=== PATIENT | female | born 1960 | race Caucasian/White ===

== ENCOUNTER → 2023-05-23 | Outpatient (CLI) | payer SELFPAY, OTHER ==
--- NOTE | 2023-05-23 10:50 | US_ITS ---
STUDY: ULTRASOUND OF THE FEMALE PELVIS - LIMITED REASON FOR EXAM: Female, 62 years old UTERINE/VAG BLEED-occasional spotting -- POST MENOPAUSAL TECHNIQUE: Transabdominal TECHNICAL QUALITY: Adequate. COMPARISON: None. FINDINGS: The uterus is anteverted and is in a midline position. The uterus measures 6 x 5 x 2 cm. Normal uterine cervix. The endometrium measures 3-7.5 mm in thickness, and is endometrium is inhomogeneous. Particularly seen on the transverse view. There is a suggestion of a centrally located low attenuation which may represent fluid within the canal.. There is no demonstrated myometrial mass. The right ovary measures 2.6 x 2.5 x 2.6 cm. cm. There are at least 2 well-circumscribed cyst in the right ovary measuring 1.7 x 1.4 x 1.1 cm and 1.9 x 1.4 x 1.0 cm. There is no visualized torsion. There is no visualized right adnexal mass or complex lesion. There is normal arterial and normal venous vascularity. The left ovary measures 3.5 x 3.2 x 2.5 cm. There is a left ovarian cyst measuring 2.4 x 2.6 x 1.9 centimeters within the posterior through-transmission. There is no visualized left adnexal mass or complex lesion. There is normal arterial and normal venous vascularity. There is no fluid in the cul-de-sac. US/Pelvic (Non ) IMPRESSION: Postmenopausal patient with vaginal bleeding a 3 to 7.5 mm endometrial thickening with inhomogeneity and fluid distention is considered abnormal. Potentially there could be sclerosis or stenosis of the vaginal canal causing minor obstruction with fluid in the endometrial canal however further investigation is warranted to exclude atypia potentially endometrial hyperplasia. Bilateral ovarian cyst although simple in appearance somewhat atypical in number for patient age. Recommend consideration for short-term serial follow-up or as clinically appropriate. Electronically Signed: Trinity Suarez MD at 16:00 EDT ,
== END | disposition home or self-care (01) ==
PROVIDERS: PCP Nurse Practitioner Family; Referring Provider Urology; Visit Provider Urology
DX: N93.9 Abnormal uterine and vaginal bleeding, unspecified (principal)
CPT/HCPCS: 76856

== ENCOUNTER 2023-08-07 06:49 | Day surgery (SDC) | payer SELFPAY, OTHER ==
--- NOTE | 2023-08-07 | EMB_PTH ---
PATIENT: RAJESH DUARTE LOC: [facility] [place][id number] AGE/SX: 62/F ROOM: RE08/07/[address]: Dr. Kelley Farrar, : 1960 BED: DIS: 08/07/2023 SPEC #: [id number] RECD: 08/07/23 10:55 STATUS: CONCHIS RYAN #: [id number] JENIFER: 08/07/23 00:[address]: Kelley Farrar DEPT: SURGICAL PATHOLOGY RECD BY: Bartolo Meyer ENTERED: 08/07/23 10:55 SP TYPE: ENDOM BX/C CHANTELL DR: Afsaneh Andrews, COLLEGE B[employer]ET[employer]ALL COACH-C Tissues: A - Endometrium, NOS B - Endometrium, NOS Procedures: Surgery Specimen Level IV HEADER OPERATION: Hysteroscopy, D & C Symphion PRE-OP DIAGNOSIS: Abnormal uterine bleeding TISSUE SUBMITTED: A - Endometrial polyp, B - Endometrial curettings MICROSCOPIC DIAGNOSIS A. Endometrial polyp, biopsy: Fragments of simple cystic hyperplasia without atypia. Fragments of myometrium with no pathologic change. B. Endometrium, biopsy: Rare strips of benign superficial glandular mucosa. AM:mario 08/10/2023 MICROSCOPIC DESCRIPTION Slides are reviewed. GROSS DESCRIPTION A - Received in fixative is one container labeled with the patient's name and designated endometrial polyp. The specimen consists of multiple irregular fragments of light russell soft tissue that in aggregate measure 2.5 x 1.0 x 0.1 cm. The specimen is totally submitted in one cassette. B - Received in fixative is one container labeled with the patient's name and designated endometrial curettings. The specimen consists of multiple minute fragments of mucoid light russell tissue that in aggregate measure 1.0 x 0.2 x <0.1 cm. The specimen is totally submitted in one cassette. / AM:mario 08/07/2023 TC:5 CPT: 84951 x2
[2023-08-07 07:12] VITALS: BP 139/69; PULSE 76; RESP 18; TEMP 36.6; O2SAT 100; BMI 23.3
[2023-08-07] MEDS: Lactated Ringers 1,000 ML 15 ML IV (07:19)
[2023-08-07 07:31] LABS: Hematocrit 46.4 % (37-47); Hemoglobin 14.9 g/dL (12.0-15.0); Mean Corp Hgb Conc 32.1 g/dL (32-36); Mean Corpuscular Hgb 29.5 pg (27.0-32.0); Mean Corpuscular Volume 91.9 fL (81-99); Mean Platelet Vol. 9.3 fl (6.2-12.0); Platelet Count 282 K/mm3 (150-450); RBC Distribution Width SD 40.7 fl (35.1-43.9); Red Blood Count 5.05 M/mm3 (4.2-5.4); White Blood Count 5.9 K/mm3 (4.4-11.0)
[2023-08-07 08:16] LABS: Anion Gap 4 (5-15); BUN 13 mg/dL (7-18); BUN/Creat Ratio 19.3 RATIO (10-20); Calcium,Total 9.2 mg/dL (8.5-10.1); Chloride 107 mmol/L (98-107); Creatinine, Serum 0.67 mg/dL (0.55-1.02); EST Glomerular Filtration Rate 94 mL/min (>60); Est Glom Filt Rate - Afr Amer 114 mL/min (>60); Estimated Creatinine Clearance 68.86 ml/min; Glucose 91 mg/dL (74-106); Potassium 3.7 mmol/L (3.5-5.1); Sodium Level 140 mmol/L (136-145)
[2023-08-07] MEDS: Lidocaine 1%/Epi 1:200 (30ml) 30 ML AMPUL (09:05)
--- NOTE | 2023-08-07 09:24 | OP.PCM_ITS ---
Problems Associated Problem List Diagnoses (1) PMB (postmenopausal bleeding): (2) Endometrial polyp: Report of Operation Date of Procedure: 08/07/23 Pre-Operative Diagnosis: PMB, endometrial polyp Post-Operative Diagnosis: As above Surgery/Procedure Performed:: Hysteroscopy, polypectomy, D&C Description of Surgical Findings:: 1 polyp noted in left cornua of uterus. Otherwise normal appearing uterine cavity with bilateral tubal ostia visualized. Atrophic appearing endometrium. Descent of uterus and cervix to vaginal introitus. Surgeon: Kelley Farrar dog behaviorist: None Type of Anesthesia: MAC Special Medications: None Specimen's removed: Endometrial polyp and endometrial curettings Drains: None Estimated Blood Loss (mL): < 50 Fluids Replaced: 600 cc deficit Description of Procedure: Patient was taken to the operating room where MAC anesthesia was induced. She was prepped and draped in the dorsal lithotomy position using yellowfin stirr ups. Her pessary was removed in usual fashion without difficulty. A right angle retractor was placed in the vagina to expose the cervix. Vaginal mucosa was atrophic and otherwise normal-appearing. The cervix was grossly normal- appearing. The anterior lip of the cervix was grasped with a single-tooth tenaculum. 1% lidocaine with epinephrine was injected circumferentially around cervix. The cervix was serially dilated to accommodate the Symphion hysteroscope. The Symphion hysteroscope was advanced into the uterus and the uterus was distended with normal saline. 1 endometrial polyp was noted in the left cornua of the uterus. The resection device of the Symphion was used to resect the polyp. The cavity was then otherwise normal-appearing and bilateral tubal ostia were previously visualized. The endometrium was atrophic appearing. The hysteroscope was then removed. A sharp curettage was performed for scant tissue. The endometrial polyp and endometrial curettings were sent to pathology for review. All instruments were removed from the vagina. The pessary was washed and replaced. Instrument and sponge counts were correct. The patient was taken to the recovery room in stable condition. Grafts/Implants Used: None Procedure Start Time: 08:41 Procedure Stop Time: 09:23 Complications None Admit VTE Documentation VTE Present on Admission: No VTE Mechan Device Prophylaxis: SCD's
[2023-08-07 09:35] VITALS: BP 104/73; BP 139/69; PULSE 73; RESP 16; TEMP 37.4; O2SAT 99
[2023-08-07 09:40] VITALS: BP 114/70; BP 139/69; PULSE 65; RESP 16; O2SAT 98
--- NOTE | 2023-08-07 09:44 | PCM.DC ---
Discharge Instructions Diet Discharge Diet: No restrictions Activity Discharge Activity: May Drive (once you are more than 24 hours out from surgery) and May Shower (once you are more than 24 hours out from surgery) May resume sexual activity in: 1-2 weeks (no soaking in water, no tampons, no intercourse) Dressing / Incision Call your doctor if you observe: Fever of 101 or Higher, Coldness, Increased Pain, Numbness or Tingling, Change in Color, Inability to urinate, Inability to have a bowel movement, Using more than 1 pad per hour, Shortness of breath, Dizziness, Fainting spells, Swelling in the ankles, Chest pain, Increased palpitations (irregular heartbeat), Calf discomfort and Uncontrolled pain Follow Up Care Please Follow Up With: Kelley Farrar DO When: 1-2 weeks post op Test Results: Test results from this visit will be discussed in further detail at your follow-up appointment, if applicable. Discharge Plan Admission Attending Provider: Kelley Farrar Primary Care Provider: Afsaneh Andrews Discharge Orders/Prescriptions Prescriptions: No Action latanoprost 0.005 % drops 1 drp ophthalmic (eye) QHS Patient Comments: INSTILL ONE DROP IN EACH EYE NIGHTLY coenzyme Q10 [CoQ-10] 100 mg capsule 100 mg PO BID Referrals / Follow Up: Afsaneh Andrews, FI[employer] HARVEST CONTRACTOR-C [Primary Care Provider] - Disposition Disposition (needs filled in before D/C Order can be placed): Home, Self Care
[2023-08-07 09:45] VITALS: BP 115/69; BP 139/69; PULSE 70; RESP 16; O2SAT 96
[2023-08-07 09:50] VITALS: BP 139/69; BP 95/49; PULSE 66; RESP 16; O2SAT 96
[2023-08-07 10:00] VITALS: BP 108/53; BP 139/69; PULSE 66; RESP 16; TEMP 37.3; O2SAT 96
== END 2023-08-07 12:00 | disposition home or self-care (01) ==
LOC: SDC 06:51 → AC 06:51
PROVIDERS: PCP Nurse Practitioner Family; Referring Provider Obstetrics & Gynecology; Visit Provider Obstetrics & Gynecology
PROC: 0UB98ZZ Excision of Uterus, Via Natural or Artificial Opening Endoscopic (ICD-10-PCS; CPT 58558; principal; 2023-08-07 08:30)
DX: N85.00 Endometrial hyperplasia, unspecified (principal); N95.0 Postmenopausal bleeding
CPT/HCPCS: 58558; 00952; 80048; 85027; 86850; 86900; 86901; 88305; J7120; J2405

== ENCOUNTER 2024-04-15 09:54 | Day surgery (SDC) | payer SELFPAY, OTHER ==
[2024-04-15] VITALS (8 sets, daily range): BP systolic 95–118; BP diastolic 51–68; PULSE 64–67; RESP 16–18; TEMP 36.1–36.6; O2SAT 100; BMI 19.8
[2024-04-15] MEDS: Lactated Ringers 1,000 ML 15 ML IV (10:32)
[2024-04-15] MEDS: Cefazolin 2 GM in 0.9% Normal Saline (100mL Bag) 100 ML IV (11:17)
--- NOTE | 2024-04-15 11:34 | PCM.PRE.AN2 ---
ASA Classification* ASA Classification ASA Classification: 2 Assessment & Plan Anesthesia* Anesthesia Assessment Anesthesia Assessment: Discussed sedation and/or anesthesia options, risks, benefits, and alternatives with patient/parents/legal guardian/POA. Questions invited. The patient/parents/legal guardian/POA seems to understand and agrees to proceed with anesthesia plan. Reviewed the physical assessment, medical history, allergy history and patient home medications list prior to surgery/procedure/anesthetic and documented any changes. Performed airway and anesthesia risk assessments. Anesthesia Type Anesthesia Type: MAC History Source History Obtained from:: Patient and Chart Anesthesia Focused Assessment* Temperature: 97 F Pulse Rate: 66 Blood Pressure: 118/68 Respiratory Rate: 16 Pulse Ox: 100 Airway Assessment Mouth opens: >3 cm Mallampati Score: II Teeth Condition: Dentures and Full Neck Range of motion (ROM): Full ROM Focused Labs Anesthesia Preop lab: CBC WBC 3.1 K/mm3 (4.4-11.0) L 04/06/24 10:35 RBC 3.88 M/mm3 (4.2-5.4) L 04/06/24 10:35 Hgb 12.2 g/dL (12.0-15.0) 04/06/24 10:35 Hct 37.8 % (37-47) 04/06/24 10:35 Plt Count 238 K/mm3 (150-450) 04/06/24 10:35 CHEMISTRY Potassium 4.0 mmol/L (3.5-5.1) 04/06/24 10:35 Sodium 141 mmol/L (136-145) 04/06/24 10:35 BUN 9 mg/dL (7-18) 04/06/24 10:35 Creatinine 0.54 mg/dL (0.55-1.02) L 04/06/24 10:35 Glucose 94 mg/dL (74-106) 04/06/24 10:35 COAG Pre-Assessment Diagnosis/Proposed Procedure Planned Operative Procedure(s): (R) Insertion, Vascular Port Right poss left IJ Anesthesia History Anesthesia History - sandblaster glass: Anesthesia History - sandblaster glass Hx Hospitalization Yes: BREAST SURGERY DONE IN 04/12/24 10:51 [place] 02/2024 Any Problems With Anesthesia No 04/12/24 10:51 Cholinesterase deficiency No 04/12/24 10:51 You/Your Family Experience No 04/12/24 10:51 fever (hyperthermia) with Relationship Recent Exposure to Contagious No 04/15/24 10:29 Disease Does patient have nerve No 04/12/24 10:51 stimulator Patient instructed to have device shut off --Does patient have Pacemaker No 04/15/24 10:29 or ICD? When Was Last Pacemaker Check QUESTION #4 FULL TEXT: You/Your Family Experience fever (hyperthermia) with Anesthesia Last Oral Intake Last Oral intake: Last Oral Intake NPO since 22:30 04/15/24 10:29 Meds taken in AM with sips of water? Meds patient instructed to take am of surgery PONV PONV - sandblaster glass: PONV - sandblaster glass Female Yes 04/12/24 10:51 HX of Motion Sickness No 04/12/24 10:51 HX of N/V After Surgery No 04/12/24 10:51 Non-Smoker Yes 04/12/24 10:51 Duration of Surgery greater No 04/12/24 10:51 than 60 minutes Number of Risk Factors 2 04/12/24 10:51 PONV Score Moderate Risk 04/12/24 10:51 Height & Weight Height & Weight: Anesthesia: Height & Weight Height 5 ft 2 in 04/15/24 10:29 Weight: 49 kg 04/15/24 10:29 Body Mass Index (BMI) 19.8 04/15/24 10:29 Respiratory Assessment Respiratory Assessment - sandblaster glass: Respiratory Tract Infection Hx - sandblaster glass Hx Respiratory Tract Infection No 04/12/24 10:51 STOP Sleep Apnea STOP Sleep Apnea - sandblaster glass: STOP Sleep Apnea - sandblaster glass Hx Hypertension No 04/12/24 10:51 Hx Sleep Apnea No 04/12/24 10:51 CPAP BIPAP Do you snore loudly (louder No 04/12/24 10:51 than talking or can be heard Do you often feel tired/ No 04/12/24 10:51 fatigued/ sleepy during daytime? Has anyone observed you stop No 04/12/24 10:51 breathing during sleep? STOP Results Negative 04/12/24 10:51 QUESTION #5 FULL TEXT : Do you snore loudly (louder than talking or can be heard through closed doors)? Tobacco Use History Tobacco Use History - sandblaster glass: Tobacco Use History - sandblaster glass Tobacco Use Smoking Status Never smoker 04/12/24 10:51 Hx Tobacco Use No 04/12/24 10:51 Years Smoking Packs Smoked per Day Smoking Cessation Date was within the last 15 years Hx Smoking Cessation Date Hx Smoking Cessation Counseling Hematologic Medial History Hematologic Hx - sandblaster glass: Hematologic Medical Hx - documentation liaison Hx of Blood Transfusion No 04/12/24 10:51 Hx of Transfusion in last 3 No 04/12/24 10:51 Months Date of Last Transfusion (if within last 3 months) Ever experience any problems No 04/12/24 10:51 with transfusion(s)? Specify any problems Hx of Preganancy in last 3 N/A 04/12/24 10:51 Months Nurse Filling Out Transfusion NBUCHER 04/12/24 10:51 & Questions: Date: 04/12/24 04/12/24 10:51 Time: 10:53 04/12/24 10:51 Patient unable to answer at this time (ie. confused, unrespo /Reproduction History /Reproductive History - sandblaster glass: /Reproductive Hx- sandblaster glass Hx Now Gestational Age (in weeks): EDC: Hx Hx Para Hx Section SAB No 04/12/24 10:51 Active Medications Active Medications: Current Medications Generic Name Dose Route Start Last Admin Trade Name Freq PRN Reason Stop Dose Admin Cefazolin Sodium 2 gm/ Sodium 110 mls @ 150 mls/hr 04/15/24 11:30 Chloride IV 04/15/24 12:13 PREOP ONE Lactated Ringer's 1,000 mls @ 15 mls/hr 04/15/24 10:15 04/15/24 10:32 IV 15 mls/hr .Q48H GELY Administration PFSH Medical History Encounter for education Regional lymph node metastasis present Uterine polyp Breast cancer Wears glasses Wears dentures Post-menopausal Bladder disease Low iron Migraine headache Non-smoker Leg cramps Home Medications ?Medication ?Instructions ?Recorded ?Last Taken ?Type latanoprost 0.005 % eye drops 1 drp ophthalmic (eye) QHS 07/29/23 Unknown History U-Tip PO 04/06/24 Unknown History vit. B17 PO 04/06/24 Unknown History dexamethasone 4 mg tablet 8 mg (2 x 4 mg) PO .COMPLEX #36 04/07/24 Unknown Rx tabs lidocaine-prilocaine 2.5 %-2.5 % 1 applic topical ONCE PRN port 04/07/24 Unknown Rx topical cream access 30 days #30 grams ondansetron 8 mg disintegrating 8 mg PO Q8H PRN nausea and 04/07/24 Unknown Rx tablet vomiting #30 tabs Allergy/AdvReac Type Severity Reaction Status Date / Time peanut Allergy Severe Angioedema Verified 04/15/24 10:26 Family History Grandmother Cancer Diabetes Brother Cancer brain Surgical History (Updated 04/12/24 @ 10:55 by Mayelin De La Rosa) History of right mastectomy (~02/2024) Hx of dilation and curettage Hx of laparoscopy Hx of appendectomy Social History Smoking Status: Never smoker alcohol intake: never Review of Systems (Anesthesia) ROS Narrative System reviewed and no additional complaints, except as documented.
--- NOTE | 2024-04-15 12:09 | PCM.HP.BLA ---
History and Physical Date of Admission: 04/15/24 MR#: [id number] Acct: [id number] Name: RAJESH DUARTE Rep #: [id number] : 1960 Provider: Dr. Matt Carpenter MD Age/Sex: 63/F Location: [facility] Status: Signed Intake Vital Signs 04/06/2409:07 04/07/2415:00 04/08/2414:11 Height 5 ft 2 in 5 ft 2 in 5 ft 2 in Weight: 112 lb 7 oz BMI 20.5 BP 104/70 100/67 Blood Pressure Location Rt brachial Rt brachial Position Sitting Sitting Respiration 16 17 Pulse 68 70 Pulse Source Monitor Monitor Temp 97.5 F L Pulse Oximetry (%) 100 98 Oxygen Delivery Method room air room air Intake Visit Reasons: PORT PLACEMENT Chief Complaint: port placement Allergies peanut Allergy (Severe, Verified 04/08/24 14:12) Angioedema Medications ?Medication ?Instructions ?Recorded ?Confirmed ?Type coenzyme Q10 100 mg capsule 100 mg PO BID 07/29/23 04/08/24 History (CoQ-10) latanoprost 0.005 % eye drops 1 drp ophthalmic (eye) QHS 07/29/23 04/08/24 History U-Tip PO 04/06/24 04/08/24 History vit. B17 PO 04/06/24 04/08/24 History dexamethasone 4 mg tablet 8 mg (2 x 4 mg) PO .COMPLEX #36 04/07/24 04/08/24 Rx tabs lidocaine-prilocaine 2.5 %-2.5 % 1 applic topical ONCE PRN port 04/07/24 04/08/24 Rx topical cream access 30 days #30 grams ondansetron 8 mg disintegrating 8 mg PO Q8H PRN nausea and 04/07/24 04/08/24 Rx tablet vomiting #30 tabs PFSH Medical History (Updated 04/08/24 @ 19:[address] Matt Carpenter MD) Encounter for education Breast cancer Regional lymph node metastasis present Uterine polyp Wears glasses Wears dentures Post-menopausal Bladder disease Low iron Migraine headache Non-smoker Leg cramps Surgical History Hx of dilation and curettage Hx of laparoscopy Hx of appendectomy Family History Grandmother Cancer DiabetesBrother Cancer brain Social History Smoking Status: Never smoker alcohol intake: never HPI HPI HPI: Patient is a 63-year-old female who presents for consideration of port placement. Patient was diagnosed with breast cancer on 02/10/2024 (after she confesses she identified it via self exam mid December) and on 03/02/2024 underwent modified radical mastectomy on the right breast with axillary lymph node dissection in [place] They have met with oncology and plans are to begin chemotherapy on 04/20/2024. Patient has had prior central line placement and shares that she had exceptional difficulty with peripheral IVs around the time of her operation so a catheter was placed on the right. Patient has no pacemaker or intracardiac defibrillator. Patient has no renal dysfunction and are not on hemodialysis. She also denies any history of recurrent skin infections. She is right-handed. Mrs. Duarte is not currently prescribed blood thinners. ROS General General: Yes weight change and breast cancer; No appetite, fatigue, colon cancer or weakness HEENT HEENT: No difficulty swallowing, eye injury, eye surgery, swollen glands or hoarseness Endo Endocrine: No thyroid disease, diabetes mellitus, thyroid cancer, Hair loss, heat intolerance or cold intolerance Skin Skin: No rash or changing moles Musc Musculoskeletal: No back problems, arthritis, rheumatoid arthritis, gout or joint pain Cardio Cardiovascular: No murmur, pacemaker, heart disease, atrial fibrillation, high blood pressure, heart attack, heart stent, palpitations, shortness of breat with exertion or chest pain Psych Psychiatric: No depression, anxiety or hearing voices Resp Respiratory: No shortness of breath, No sleep apnea, No cough, No COPD, No asthma, No emphysema and No wheezing Gastro Gastrointestinal: No abdominal pain, No nausea or vomiting, No diarrhea, Yes constipation, No blood in stool, No acid reflux, No hemorrhoids, No ulcers, Yes gallbladder problem and No black,tarry stools Jim Hematologic: No blood thinners, No blood disorders, No bleeding, No anemia and No blood clots Neuro Neurologic: No system reviewed and no additional complaints, except as documented, No as per HPI, No abnormal gait, No abnormal hearing, No abnormal movements, No abnormal speech, No behavioral changes, No burning sensations, No confusion, No convulsions, No disequilibrium, No dizziness, No localized weakness, No frequent falls, No headache(s), No lack of coordination, No loss of vision, No memory loss, Yes numbness, No other visual disturbances, No radicular pain, No restless legs, No sensory deficit, No syncope, Yes tingling, No tremor(s), No weakness and No other Exam Const General: cooperative Orientation: alert, awake and oriented x3 Chest Other: Infraclavicular scarring consistent with probable right subclavian central line. There is notably no scarring over the presumed location of the patient's internal jugular vein. There is no redness or rashes. Assessment and Plan Assessment and Plan (1) Encounter for insertion of venous access port: Status: Acute Comment: Patient requires durable venous access to begin adjuvant therapy for breast cancer that was diagnosed in January. Patient has had previous central line placement as part of her surgery in January. Based on the appearance of her scars this was a right subclavian catheter that patient states was removed after her hospital stay. With this short-lived access I am hopeful that the catheter did not result in any thrombus formation or central venous stenosis. I also remain hopeful for a possible right internal jugular access as exam would suggest a subclavian cannulation. I discussed the procedure for placement of a port with patient and stressed the need to minimize risk for infection while it remains indwelling. Both patient and her expressed understanding and denied any further questions. Plan: Right, possible left, Port-A-Cath placement in the operating room using ultrasound and fluoroscopic guidance (2) Breast cancer: Status: Acute Qualifiers: Breast location: unspecified site of breast Estrogen receptor status: positive Patient sex: female Laterality: right Qualified Code(s): C50.911 - Malignant neoplasm of unspecified site of right female breast; Z17.0 - Estrogen receptor positive status [ER+] Comment: Status post modified radical mastectomy with axillary lymph node dissection in [place]. Patient awaiting adjuvant therapy to begin with oncology and requires durable venous access to begin chemotherapy anticipated 04/20/2024. I have examined the patient and the H&P has been reviewed. There are no clinical changes since date of exam. I have confirmed plans for right possible left Port-A-Cath placement and reiterated the need to keep the area under surveillance as it heals and is accessed. Neither patient nor her have any other questions. Will now proceed to the operating room for port placement.
[2024-04-15] MEDS: Bupiv/Epi 0.25% 30 ML Vial (12:51)
--- NOTE | 2024-04-15 13:29 | OP.PCM_ITS ---
Report of Operation Date of Procedure: 04/15/24 Pre-Operative Diagnosis: Breast cancer requiring durable venous access for adju vant therapy Post-Operative Diagnosis: Same Surgery/Procedure Performed:: Ultrasound and thoracoscopic guided placement of right internal jugular Port-A-Cath Surgeon: Matt Carpenter Type of Anesthesia: MAC/Supplemental/Local Anesthesiologist: Cricket Bob Specimen's removed: none Estimated Blood Loss (mL): 5 Description of Procedure: After appropriate identification in the preoperative holding area the patient was brought to the operating room. There she was administered preoperative antibiotics and positioned supine on the operating room table. Once sedation was begun, the upper chest and lower cervical region were prepped and draped in usual sterile fashion. A formal timeout was then conducted to confirm both the patient and procedure. Ultrasound was used to localize the right internal jugular vein. Then a wheal of quarter percent bupivacaine with epinephrine was raised superficially in this location and the vein was accessed with 2 attempts (first attempt was complicated by bending of micro access wire) under direct ultrasound guidance using a Seldinger technique. The position of the guidewire was confirmed with fluoroscopy. Next the position of the port pocket was determined and again local anesthetic was used to anesthetize the area of both the pocket and the tunneling cephalad. A transverse incision approximately 3 cm in width was made down through the subcutaneous tissue. Selective electrocautery was used to obtain hemostasis. Then with blunt dissection the port pocket was developed. The catheter was connected to the tunneler and was tunneled up to the position of the guidewire. Here the dilator and peel-away sheath were placed over the guidewire and the guidewire was removed. Position was again confirmed with fluoroscopy. The catheter length was estimated based on the external placement of a hemostat to approximate the level of the alla and the cavoatrial junction. The catheter was then fed into the sheath and slowly the sheath was peeled away as the catheter was inserted fully into the neck. Back in the chest the excess catheter was trimmed and the port was connected to the catheter. The port was tied into the pocket using 3-0 Vicryl. Function was then tested using sterile saline on a Powell needle. It was locked with 3.0 mL of heparinized saline (concentration 50U/5mL). The port pocket was closed with a deep dermal stitch using a running 3-0 Vicryl followed by 4-0 Monocryl subcuticular stitch. The 1 cm incision in the neck was closed with a single interrupted subcuticular stitch using 4-0 Monocryl. Dermabond was ap plied as a dressing. Patient was then aroused from the sedation and taken to PACU for ongoing recovery were a portable chest x-ray was obtained to confirm port positioning and exclude any pneumothorax. Grafts/Implants Used: PowerPort reference [id number], Lot REJ [id number] Complications None Admit VTE Documentation VTE Mechan Device Prophylaxis: SCD's Procedures Cardiovascular CF Procedures [id number]: [id number] Insert tunneled cv cath
--- NOTE | 2024-04-15 13:32 | DCINST_ITS ---
Discharge Instructions Diet Discharge Diet: No restrictions Activity Discharge Activity: May Shower May shower in (days): 1 Ice area for (Minutes): 20 Additional Activity Instructions:: Limit the activity by the nearest upper extremity for 48 hours postop Dressing / Incision Call your doctor if your incision/area has: Increased Pain/ Swelling, Increased Redness, Foul Smelling Discharge and Swelling at the incision site Call your doctor if you observe: Fever of 101 or Higher Remove Dressing in: do not remove dressing (Dermabond (surgical glue) expected to dissolve spontaneously within 7 to 10 days postop using regular showering) Cleanse incision/area with: Soap & Water Follow Up Care Test Results: Test results from this visit will be discussed in further detail at your follow- up appointment, if applicable. Discharge Plan Admission Primary Reason for Your Visit: Port-A-Cath placement Attending Provider: Matt Carpenter Primary Care Provider: Afsaneh Andrews Instructions Print Language: Surinamese Discharge Orders/Prescriptions Prescriptions: No Action vit. B17 PO U-Tip PO lidocaine-prilocaine 2.5-2.5 % cream 1 applic topical ONCE PRN (Reason: port access) 30 Days Qty: 30 2RF dexamethasone 4 mg tablet 8 mg PO .COMPLEX Qty: 36 0RF Rx Instructions: 8 mg orally twice daily ONLY the day before, the day of, and the day after chemotherapy ondansetron 8 mg tablet,disintegrating 8 mg PO Q8H PRN (Reason: nausea and vomiting) Qty: 30 1RF latanoprost 0.005 % drops 1 drp ophthalmic (eye) QHS Patient Comments: INSTILL ONE DROP IN EACH EYE NIGHTLY Referrals / Follow Up: Afsaneh Andrews, [employer] [Primary Care Provider] - Disposition Disposition (needs filled in before D/C Order can be placed): Home, Self Care
--- NOTE | 2024-04-15 13:40 | RAD_ITS ---
STUDY: X-RAY CHEST REASON FOR EXAM: Female, 63 years old. Status post line placement TECHNIQUE: Single AP portable view of the chest. COMPARISON: None. FINDINGS: A right-sided tania catheter has been placed. The tip is at the junction of the superior vena cava and right atrium. The lungs are clear and expanded. There is no demonstrated pleural abnormality. Normal size heart. Calcified bilateral hilar lymph nodes. Normal visualized pulmonary arteries. Normal visualized aortic arch and descending thoracic aorta. Normal visualized thoracic spine. Normal visualized ribs, clavicles, and shoulders. There is no demonstrated abnormality of the visualized soft tissue structures of the upper abdomen. RAD/CXR for Line Placement IMPRESSION: The tip of the right-sided tania catheter is at the junction of the superior vena cava and right atrium. Electronically Signed: Phu Rosen MD at 13:57 EDT ,
--- NOTE | 2024-04-15 13:40 | PCM.POST.ANE ---
Anesthesia: Postop Eval I Current Vital Signs Temperature: 97.8 F Pulse Rate: 67 Blood Pressure: 105/54 Respiratory Rate: 16 Pulse Ox: 100 Oxygen Delivery Method: Room Air Assessment Airway patent: Yes Spontaneous unlabored respirations: Yes Mental status: Awake and Calm nausea: No Vomiting: No Anesthesia Complication: No Fluid Hydration Crystalloid volume administer (ml): 600 Total IV fluid infused: 600 Progress Note Anesthesia document: Postop Eval 1 completed: Yes
--- NOTE | 2024-04-15 14:13 | PCM.POSTANE2 ---
Anesthesia Postop Eval I Sum Postop Eval Completion status Anesthesia document: Postop Eval 1 completed: Yes Anesthesia Postop Eval I Summary Anesthesia Postop Eval I Summary: Anesthesia Postop Eval I: Assessment Summary Airway patent Yes 04/15/24 13:42 [email or web address] Spontaneous unlabored Yes 04/15/24 13:42 [email or web address] respirations Mental status Awake,Calm 04/15/24 13:42 [email or web address] nausea No 04/15/24 13:42 [email or web address] Vomiting No 04/15/24 13:42 [email or web address] Anesthesia Postop Eval I: Fluid Summary Crystalloid volume administer 600 04/15/24 13:42 [email or web address] (ml) Colloids volume administered ( ml) Blood Product volume administered (ml) Total IV fluid infused 600 04/15/24 13:42 [email or web address] Anesthesia Postop Eval I: Summary Notes Anesthesia Complication No 04/15/24 13:42 [email or web address] Anesthesia Complication Comment: Post-operative progress note Anesthesia: Postop Eval II Evaluation Mental status: Awake and Calm Pain Level: 1 nausea: No Vomiting: No Complications Anesthesia Complication: No
== END 2024-04-15 15:38 | disposition home or self-care (01) ==
LOC: SDC 09:56 → AC 09:57
PROVIDERS: PCP Nurse Practitioner Family; Referring Provider Surgery; Visit Provider Surgery
PROC: (CPT 36561; principal; 2024-04-15 11:15)
DX: Z45.2 Encounter for adjustment and management of vascular access device (principal); C50.911 Malignant neoplasm of unspecified site of right female breast
CPT/HCPCS: 36561; 71045; 77001; C1894; J7120; C1788; J2405

== ENCOUNTER → 2024-11-08 | Outpatient (CLI) | payer SELFPAY, OTHER ==
--- NOTE | 2024-11-08 08:41 | BI_ITS ---
PROCEDURE: DIAG MAMM W/CAD, UNILAT REASON FOR EXAM: F, Age 63 y/o, personal history of breast cancer. Patient is status post right mastectomy. TECHNIQUE: Bilateral screening digital breast tomosynthesis with 2D and 3D images. Computer aided detection. COMPARISON: Prior exam(s) dating back to outside examination dated February 10, 2024.. FINDINGS: The left breast is extremely dense which lowers the sensitivity of mammography. Patient has a history of left breast cyst. No suspicious masses, areas of developing architectural distortion, or suspicious calcifications. BI/DIAG MAMM W/CAD, UNILAT IMPRESSION: BI-RADS 0: INCOMPLETE - NEED ADDITIONAL IMAGING EVALUATION. Follow-up code: Targeted sonographic correlation of the left breast. The patient will be notified of the results by letter. Reading Location: [place] [id number]
--- NOTE | 2024-11-08 08:41 | US_ITS ---
PROCEDURE: BREAST LIMITED UNILATERAL REASON FOR EXAM: Follow-up for left breast cyst. COMPARISON: Comparison is made with prior mammogram done earlier in the day as well as prior sonogram of the left breast dated February 10, 2024. TECHNIQUE: Targeted left breast ultrasound. FINDINGS: LEFT: Ultrasound targeted to the lower outer quadrant at the left breast. There is a 1 cm x 1 cm x 0.4 cm well-defined hypoechoic nodule at the 5 o'clock position of the breast at 4 cm from the nipple. This may represent a fibroadenoma. Biopsy recommended. The previously seen cyst is not seen at this time. US/Breast Limited Unilateral IMPRESSION: 1 cm x 1 cm x 0.4 cm well-defined hypoechoic nodule at the 5 o'clock position o f the breast at 4 cm from the nipple. Biopsy recommended. BI-RADS 4: SUSPICIOUS ABNORMALITY. Biopsy recommended. Reading Location: [place] [id number]
--- NOTE | 2024-11-08 08:48 | BD_ITS ---
EXAM: CLINICAL INDICATION: Determine bone density. CLINICAL HISTORY: Screening for osteoporosis COMPARISON: None TECHNIQUE: Bone densitometry of the lumbar spine and hips was performed using the HOLOGIC DEXA scanner. FINDINGS: Bone Density Measurements: SPINE AP Spine (L1-L4): 0.794 g/cm2 T-Score: -2.3 Z-Score: -0.6 WHO Classification: OSTEOPENIA LEFT FEMUR Femoral TOTAL (LEFT): 0.854 g/cm2 T-Score: -0.7 Z-Score: 0.4 WHO Classification: NORMAL Femoral NECK (LEFT): 0.687 g/cm2 T-Score: -1.5 Z-Score: 0.0 WHO Classification: OSTEOPENIA RIGHT FEMUR Femoral TOTAL (RIGHT): 0.778 g/cm2 T-Score: -1.3 Z-Score: -0.2 WHO Classification: OSTEOPENIA Femoral NECK (RIGHT): 0.669 g/cm2 T-Score: -1.6 Z-Score: -0.2 WHO Classification: OSTEOPENIA BD/Dexa Bone Density Study IMPRESSION: Findings consistent with osteopenia World Health Organization criteria for BMD interpretation classify patients as: Normal (T-score at or above -1.0), Osteopenic (T-score between -1.0 and -2.5),or Osteoporotic (T-score at or below -2.5). The presence of vertebral abnormalities such as scoliosis or osteophytes, or ao rtic/ligamentous calcifications can alter readings of the lumbar spine. In such cases, readings of the hips are more reliable. Reading Location: [facility]
== END | disposition home or self-care (01) ==
PROVIDERS: PCP Nurse Practitioner Family; Referring Provider Nurse Practitioner Family; Visit Provider Nurse Practitioner Family
DX: N60.02 Solitary cyst of left breast (principal); Z85.3 Personal history of malignant neoplasm of breast; Z90.11 Acquired absence of right breast and nipple; Z78.0 Asymptomatic menopausal state; Z79.811 Long term (current) use of aromatase inhibitors; Z13.820 Encounter for screening for osteoporosis
CPT/HCPCS: 76642; 77061; 77065; 77080; G0279

== ENCOUNTER → 2024-11-14 | Outpatient (CLI) | payer OTHER, SELFPAY ==
--- NOTE | 2024-11-14 12:18 | BREAST_PTH ---
PATIENT: RAJESH DUARTE LOC: [facility] U#:[id number] AGE/SX: 63/F ROOM: RE11/14/[address]: Dr. Rebecca Fabian MD : [id number] BED: DIS: 11/14/2024 SPEC #: [id number] RECD: 11/14/24 14:59 STATUS: CONCHIS REBrigitte #: [id number] JENIFER: 11/14/24 12:[address]: Rebecca Fabian DEPT: SURGICAL PATHOLOGY RECD BY: Ron Mccain ENTERED: 11/14/24 14:59 SP TYPE: BREAST OTHR DR: Afsaneh Andrews, LABORATORY ADMINISTRATIVE DIRECTOR-C Tissues: Left breast, NOS Procedures: Surgery Specimen Level V HEADER OPERATION: Left breast biopsy PRE-OP DIAGNOSIS: Left breast nodule biopsy TISSUE SUBMITTED: Left breast nodule 5o'clock retroareolar MICROSCOPIC DIAGNOSIS Left breast nodule, 5o'clock, retroareolar, core biopsy: Hyalinized fibroadenoma. Negative for atypia or malignancy. See comment. mr 11/15/2024 COMMENT Correlation with clinical, radiologic findings and appropriate follow up are necessary. MICROSCOPIC DESCRIPTION Slides are reviewed. GROSS DESCRIPTION Received in fixative is one container labeled with the patient's name and designated Left breast nodule. The specimen consists of rare minute fragments of russell tissue strained through a biopsy bag aggregating to 3-4mm at most. The specimen is submitted entirely in one cassette. [email or web address] 11/14/2024 TC:1 CPT:52153
== END | disposition home or self-care (01) ==
PROVIDERS: PCP Nurse Practitioner Family; Visit Provider Surgery
DX: D24.2 Benign neoplasm of left breast (principal)
CPT/HCPCS: 88307

== ENCOUNTER → 2025-02-15 | Outpatient (CLI) | payer SELFPAY ==
--- NOTE | 2025-02-15 08:45 | BI_ITS ---
EXAM: SCREEN MAMM (CAD) W/ANTONIO UNI L 02/15/2025 CLINICAL HISTORY: F, Age 64 y/o , ANNUAL LEFT BREAST SCREENING TECHNIQUE: Left screening digital breast tomosynthesis with 2D and 3D images. Computer aided detection. COMPARISON: Mammograms 11/08/2024 and 02/10/2024. Ultrasound 11/08/2024. FINDINGS: TISSUE DENSITY: The breast tissue is extremely dense which lowers the sensitivity of mammography. The mammogram demonstrates that the patient has dense breasts. Supplemental screening with whole breast ultrasound or MRI may be considered for further evaluation. Left breast Mammographic Findings: There is a biopsy marker clip in the slightly upper slightly outer left breast at anterior depth, this correlates to the previously biopsied mass at 5 o'clock retroareolar with corresponding benign pathology of fibroadenoma. Otherwise, no significant masses, calcifications or other abnormalities are identified. BI/SCREEN MAMM (CAD) W/ANTONIO UNI L IMPRESSION: Left Breast: BIRADS 2 BENIGN FINDING. OVERALL FINAL ASSESSMENT: BIRADS 2 BENIGN FINDING. RECOMMENDATION: Routine annual follow-up in 1 Year A letter with findings and recommendations will be mailed to the patient. Reading Location: [id number]
== END | disposition home or self-care (01) ==
PROVIDERS: PCP Nurse Practitioner Family; Referring Provider Student in an Organized Health Care Education/Training Program; Visit Provider Student in an Organized Health Care Education/Training Program
DX: Z12.31 Encounter for screening mammogram for malignant neoplasm of breast (principal)
CPT/HCPCS: 77063; 77067

== ENCOUNTER → 2025-02-18 | Outpatient (CLI) | payer SELFPAY, OTHER ==
--- NOTE | 2025-02-18 07:32 | US_ITS ---
PROCEDURE: LIVER 02/18/2025 REASON FOR EXAM: ELEVATED LFTS COMPARISON: None FINDINGS: Liver: Hepatomegaly to 17.5 cm. Coarse echotexture. Gallbladder: Multiple gallstones and biliary sludge. No pericholecystic fluid. Negative Hayes's sign. No gallbladder wall thickening. Common bile duct: 3 mm, within normal limits Pancreas: Within normal limits Right kidney: Measures 11.8 cm. No hydronephrosis. US/Liver IMPRESSION: Cholelithiasis without acute cholecystitis. Hepatomegaly. Reading Location: [id number]
== END | disposition home or self-care (01) ==
PROVIDERS: PCP Nurse Practitioner Family; Referring Provider Internal Medicine Hematology & Oncology; Visit Provider Internal Medicine Hematology & Oncology
DX: R79.89 Other specified abnormal findings of blood chemistry (principal)
CPT/HCPCS: 76705

== ENCOUNTER → 2025-08-15 | Outpatient (CLI) | payer SELFPAY ==
--- NOTE | 2025-08-15 08:19 | US_ITS ---
PROCEDURE: PELVIC (NON ) 08/15/2025 REASON FOR EXAM: ABNORMAL UTERINE BLEEDING, HISTORY UTERINE POLYPS TECHNIQUE: Procedure Code: USPEL Modality: US Procedure: PELVIC (NON ) COMPARISON: None FINDINGS: Measurements: Uterus: 6.3 x 2.2 x 4.7 cm for volume of 34.8 mL Endometrial Thickness: 3 mm Right Ovary: 3.9 x 2.0 x 2.5 cm for volume of 10.0 mL Left Ovary: 3.3 x 1.7 x 2.2 cm for volume of 6.3 mL Uterus: Slightly retroverted Endometrium: Unremarkable. Right ovary: Avascular anechoic lesion measuring 2.8 x 1.9 x 2.3 cm. Left ovary: Avascular anechoic lesion measuring 3.3 x 1.7 x 2.2 cm. Other: No significant pelvic free fluid. Prominently distended urinary bladder. US/Pelvic (Non ) IMPRESSION: 1. Bilateral simple ovarian cysts (O-RADS 2), measuring 3.3 cm on the left and 2.8 cm on the right. Recommend repeat ultrasound in 12 months per O-RADS guidelines. 2. Endometrial thickness of 3 mm. Reading Location: [place]
== END | disposition home or self-care (01) ==
PROVIDERS: PCP Nurse Practitioner Family; Referring Provider Urology; Visit Provider Urology
DX: N93.9 Abnormal uterine and vaginal bleeding, unspecified (principal)
CPT/HCPCS: 76856